=== PATIENT | male | born 1940 | race Caucasian/White ===

== ENCOUNTER 2016-11-25 20:11 | Emergency (ER) | payer MEDICARE ==
[~2016-11-25] VITALS: Ht 188 cm; Wt 77.3 kg
[~2016-11-25 20:11] MED LIST: FLUT9.9S NS; LISI-571 PO; METH5TAB3 PO; MORP15TA PO; MULT1CAP33 PO; PROP150T PO; WARF2.5T PO; WARF5TAB PO; [UNRECOGNIZED DRUG - CODE] PO
[2016-11-25 20:14] VITALS: BP 138/62; PULSE 76; RESP 16; O2SAT 98
--- NOTE | 2016-11-25 21:08 | ED.REPORT ---
HPI-Overdose/Alcohol Toxicity Date of Service Nov 25, 2016 ED Provider: Abner Rasmussen MD Pt is a 75 y.o. male with a hx of HTN and neuropathy who presents to the ED c/o increased dizziness and confusion. He claims that his dizziness worsens when standing. He also reports that he becomes confused around noon and this confusion lasts until he wakes up in the morning, he notes that it worsened today when he was attempting to operate his computer. Pt states that he was regularly consuming a 6-pack of beers everyday and he began tapering his ETOH use 4 days ago. He denies having similar sx previously. Pt is currently on warfarin. Nursing Notes Stated Complaint: HAND TREMORS, DIZZY Chief Complaint: Substance Abuse Nursing Notes Reviewed: Yes Allergies: Coded Allergies: No Known Allergies (Verified Allergy, Unknown, 01/14/10) Uncoded Allergies: PERFUMES (Adverse Reaction, Unknown, 04/13/14) Scheduled Fluticasone Propionate (Flonase Allergy Relief) 50 Mcg/Actuation [place].susp 9.9 ML NS DAILY Lisinopril (Lisinopril) 5 Mg Tablet 5 MG PO PM Methadone (Methadone) 5 Mg Tablet 5 MG PO QID Morphine Sulfate ER (MS Contin) 60 Mg Tablet.er 60 MG PO TID Multivitamin (Multivitamins) 1 Each Capsule 1 EACH PO DAILY Propafenone (Propafenone) 150 Mg Tablet 150 MG PO BIDPRN Warfarin Sodium (Coumadin) 2.5 Mg Tablet 2.5 MG PO SUNDAY Warfarin Sodium (Coumadin) 5 Mg Tablet 5 MG PO DAILY EXCEPT Scheduled PRN Morphine Sulfate (Morphine Sulfate) 15 Mg Tablet 1 TAB PO Q4H PRN PRN For Pain General Time Seen by Provider: 20:52 Chief Complaint Other (Dizziness) Hx Obtained From: Patient Arrived By: Ambulance Onset Occurred: 1 day ago Symptom Duration: Since onset Severity: Current: No pain currently Similar Sx Previous: No Risk-Overdose/Alcohol Tox )( Suicide Risk Stratification RF Statements: Risk factors reviewed Past Medical History Past Medical History Neuropathy Reports: Hypertension, Denies: Stroke Past Surgical History None reported Smoking History Former Smoker Social History Alcohol Use: 1-3 per day Ambulatory Status Independent Review of Systems Neurologic: Reports: Confusion, Dizziness Complete sys rev & neg: except as marked. Physical Exam Initial Vital Signs Vital Signs (First) Date Time Temp Pulse Resp B/P Pulse Ox O2 Delivery O2 Flow Rate FiO2 11/25/16 20:14 36.7 76 16 138/62 98 Room Air Initial VS: Reviewed Head / Eyes: Atraumatic, Normocephalic Skin: Warm, Dry General/Constitutional: Awake, Alert, Well appearing, Well developed, Well hydrated, Well nourished, Not toxic appearing Respiratory / Chest: Atraumatic, Breath sounds NL, Breath sounds = bilat, No respiratory distress, No rales, No rhonchi, No wheezing, No retractions, No stridor Cardiovascular: Heart rate NL, Regular rhythm, Heart sounds NL, No gallop, No murmurs Abdomen: Atraumatic, Soft, Non-tender, No guarding, No rebound Neurologic: Oriented X3, Speech NL, CN II - XII intact Strength 5/5 hands, bilateral Fine resting tremor Stable on his feet, did not take a step. Psychiatric: Affect NL, Mood NL Interpretation & Diagnostics Lab Results Interpretation Result Diagram: 11/25/16 2210 11/25/16 2210 Test 11/25/16 21:20 11/25/16 22:10 Urine Color Yellow (YELLOW) Urine Appearance Clear (CLEAR,HAZY) Urine pH 6.0 (5.0-8.0) Urine Specific [place] 1.010 (1.003-1.035) Urine Protein Negativemg/dL (NEG,TRACE) Urine Glucose (UA) Negativemg/dL (NEGATIVE) Urine Ketones Tracemg/dL (NEGATIVE) Urine Occult Blood Trace (NEGATIVE) Urine Nitrite Negative (NEGATIVE) Urine Bilirubin Negative (NEGATIVE) Urine Urobilinogen Normalmg/dL (NORMAL) Urine Leukocyte Esterase Negative (NEGATIVE) Urine RBC 0-2/hpf (0-2) Urine WBC 0-5/hpf (0-5) Urine Epithelial Cells Occasional/hpf (NONE-MOD) Urine Crystals None seen (NONE SEEN) Urine Bacteria None/hpf (NONE-FEW) Urine Hyaline Casts None/lpf (NONE) Urine Granular Casts None seen (NONE SEEN) Urine Waxy Casts None seen (NONE SEEN) Urine Red Blood Cell Casts None seen (NONE SEEN) Urine White Blood Cell Casts None seen (NONE SEEN) Urine Mucus None seen (None Seen) Urine Trichomonas None seen (NONE SEEN) Urine Yeast None (NONE SEEN) Urinalysis Comment None Urine Culture Reflexed Not indicated White Blood Count 8.3th/mm3 (3.8-10.1) Red Blood Count 4.46mil/mm3 (4.40-5.80) Hemoglobin 13.7g/dL (13.8-17.2) Hematocrit 40.5% (41.0-50.0) Mean Corpuscular Volume 90.8fL (81-100) Mean Corpuscular Hemoglobin 30.7pg (27.0-35.0) Mean Corpuscular Hemoglobin Concent 33.8% (32.0-37.0) Red Cell Distribution Width 13.0% (12.3-15.4) Platelet Count 164bil/L (150-400) Neutrophils (%) (Auto) 69.8% (40-74) Lymphocytes (%) (Auto) 18.3% (14-46) Monocytes (%) (Auto) 10.3% (4-12) Eosinophils (%) (Auto) 1.3% (0-5) Basophils (%) (Auto) 0.1% (0-3) Prothrombin Time 16.7sec (8.1-12.5) Prothromb Time International Ratio 1.55ratio Sodium Level 130mEq/L (134-144) Potassium Level 4.4mEq/L (3.5-5.2) Chloride Level 92mEq/L (97-108) Carbon Dioxide Level 27mmol/L (18-29) Blood Urea Nitrogen 11mg/dL (8-27) Creatinine 0.72mg/dL (0.76-1.27) Estimat Glomerular Filtration Rate 113mL/min (>59) Glucose Level 115mg/dL (60-99) Calcium Level 9.1mg/dL (8.5-10.1) Total Bilirubin 0.9mg/dL (0.0-1.2) Aspartate Amino Transf (AST/SGOT) 21U/L (0-50) Alanine Aminotransferase (ALT/SGPT) 11U/L (0-44) Alkaline Phosphatase 77U/L (25-160) Total Protein 7.3g/dL (6.4-8.4) Albumin 4.1g/dL (3.4-5.0) Hold Andrade Top Tube Received (Received) ECG Interpretation ECG Interpretation: LBBB Time: 21:45 Interpreted by: ED physician Normal ECG Interpretation: Normal rate (68), Normal sinus rhythm CT Head Interpretation IMPRESSION: 1. No acute intracranial process. 2. Moderate atrophy and chronic microvascular ischemic changes. Dictated by: Alba Kramer M.D. on 11/25/2016 at 21:49 Approved by: Alba Kramer M.D. 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 Patient reports dizziness earlier today when he stands up. Vital signs stable. Orthostatics normal. Neurological exam is completely normal. Labs stable. CT brain no acute pathology. EKG sinus bradycardia mid 50s which is consistent with old. Patient was walked and his dizziness completely resolved and he felt much better. Unclear etiology though do not see any acute life-threatening causes for his dizziness. Discussed with patient and he would like to go home. Recommend he follow up with primary doctor on Sunday. Return precautions given. Source of Hx: Old records Re-Evaluation/Progress : Time of Eval: 23:06 Re-Evaluation/Progress Note: Pt rechecked. Discussed lab results and plan for discharge, pt understands and agrees with plan. Counseled Regarding: Diagnosis, Lab results, Need for follow-up, When/why to return to ED Discharge & Departure Impression: Primary Impression: Dizziness Disposition: Home Discharge Condition All VS Reviewed: Yes Condition: Stable Additional Instructions: Your lab results are reassuring and we did not find any serious mechanism for your dizziness and confusion. I recommend you follow-up with your primary care provider on Sunday. Seek care if you experience worsening dizziness, chest pain, difficulty breathing, or any new or worsening symptoms. Referrals: Hugo Barber MD (PCP) Barbi Attestation Portions of this note were transcribed by Martina Gorman I, Dr. Rasmussen personally performed the history, physical exam and medical decision-making; I reviewed and confirmed the accuracy of the information in the transcribed note. Signed by: Barbi Canales, 11/25/16 and [id number] copies to: Hugo Barber MD, Ben M MD Nov 25, 2016 21:08 MARTINA GORMAN Nov 25, 2016 21:17
[2016-11-25 21:51] VITALS: BP 145/46; PULSE 67
[2016-11-25 21:52] VITALS: BP 144/56; PULSE 71
--- NOTE | 2016-11-25 21:52 | DRSVH ---
PROCEDURE: CT BRAIN WITHOUT CONTRAST ([id number]) INDICATIONS: dizziness TECHNIQUE: Noncontrast 4.5 mm thick angled axial sections acquired from the foramen magnum to the vertex, with c oronal reformats. COMPARISON: [facility], CT, BRAIN W/O CONTRAST, 04/20/2006, 21:20. FINDINGS: Image quality: Excellent. CSF spaces: Basal cisterns are patent. No extra-axial fluid collections. The ventricles are symmet miles in size and shape. Brain: No intracranial bleeds or masses. There is cerebral volume loss for age, with resultant vent ricular and sulcal prominence. There are periventricular and deep white matter chronic small vessel ischemic changes. There is intracranial internal carotid artery atherosclerosis. Skull and face: Calvarium and visualized facial bones appear intact, without suspicious lesions. Sinuses: Visualized sinuses and mastoids are clear. IMPRESSION: 1. No acute intracranial process. 2. Moderate atrophy and chronic microvascular ischemic changes. Dictated by: Alba Kramer M.D. on 11/25/2016 at 21:49 Approved by: Alba Kramer M.D. on 11/25/2016 at 21:49
[2016-11-25 21:56] LABS: APPEARANCE,URINE CLEAR (CLEAR,HAZY); COLOR,URINE YELLOW (YELLOW); OCCULT BLOOD,URINE TRACE (NEGATIVE); UROBILINOGEN,URINE NORMAL (NORMAL)
[2016-11-25 22:47] LABS: INR 1.55 ratio
[2016-11-25 22:53] LABS: BASOPHILS % (AUTO) 0.1 % (0-3); EOSINOPHILS % (AUTO) 1.3 % (0-5); MONOCYTES % (AUTO) 10.3 % (4-12); Mean Corpuscular Hemoglobin 30.7 pg (27.0-35.0); Mean Corpuscular Volume 90.8 fL (81-100); NEUTROPHILS % (AUTO) 69.8 % (40-74); Platelet Count 164 bil/L (150-400)
[2016-11-25 23:39] VITALS: BP 149/61; PULSE 70; RESP 16; O2SAT 95
== END 2016-11-25 23:36 | disposition home or self-care (01) ==
LOC: SED 20:11
DX: R42 Dizziness and giddiness (principal); R41.0 Disorientation, unspecified; I10 Essential (primary) hypertension; G62.9 Polyneuropathy, unspecified; Z87.891 Personal history of nicotine dependence; Z79.01 Long term (current) use of anticoagulants